=== PATIENT | male | born 1990 | race Two or more races ===

== ENCOUNTER 2016-07-18 12:54 | Emergency (ER) | payer OTHER ==
[~2016-07-18] VITALS: Ht 177.8 cm; Wt 69.9 kg
[2016-07-18 12:54] VITALS: BP 139/74
[2016-07-18 14:12] LABS: BASOPHILS # (AUTO) 0.1 /CMM (0.0-0.2); BASOPHILS % (AUTO) 0.8 % (0.0-2.0); DIFF TOTAL % 100 %; EOSINOPHILS # (AUTO) 0.1 /CMM (0.0-0.7); EOSINOPHILS % (AUTO) 1.3 % (0.0-6.0); HEMATOCRIT 40 % (39-51); HEMOGLOBIN 13.1 g/dL (13.5-17.5); LYMPHOCYTES # (AUTO) 1.2 /CMM (0.8-4.8); LYMPHOCYTES % (AUTO) 18.2 % (20.0-44.0); MEAN CORPUSCULAR HEMOGLOBIN 26 PG (26.0-33.0); MEAN CORPUSCULAR HGB CONC 33 g/dl (31.0-36.0); MEAN CORPUSCULAR VOLUME 80 fL (80-96); MONOCYTES # (AUTO) 0.5 /CMM (0.1-1.30); MONOCYTES % (AUTO) 7.2 % (2.0-12.0); NEUTROPHILS # (AUTO) 4.4 /CMM (1.8-8.9); NEUTROPHILS % (AUTO) 72.5 % (43.0-81.0); PLATELET COUNT (AUTO) 303 /CMM (150-450); RED BLOOD CELL COUNT(AUTO) 4.98 MIL/uL (4.5-6.0); WHITE BLOOD COUNT (AUTO) 6.3 K/uL (4.3-11.0)
[2016-07-18 14:21] LABS: ANION GAP 9 (5-14); CARBON DIOXIDE 32 mmol/L (21-32); CHLORIDE 103 mmol/L (98-107); CREATININE 0.8 mg/dL (0.6-1.3); GFR 118 mL/min (>60); GLUCOSE 123 mg/dL (74-106); POTASSIUM 4.2 mmol/L (3.5-5.1); SODIUM SERUM 139 mmol/L (136-145); UREA NITROGEN, BLOOD 10 mg/dL (7-18)
[2016-07-18 14:30] LABS: ALANINE AMINOTRANSFERASE 21 U/L (12-78); ALBUMIN 3.5 g/dL (3.4-5.0); ASPARTATE AMINOTRANSFERASE 18 U/L (15-37); BILIRUBIN,DIRECT 0.1 mg/dL (0.0-0.2); BILIRUBIN,TOTAL 0.4 mg/dL (0.2-1.0); INDIRECT BILIRUBIN 0.3 mg/dL (0.0-1.1); TOTAL PROTEIN, SERUM 7.3 g/dL (6.4-8.2)
[2016-07-18 14:31] LABS: ACETAMINOPHEN 0 ug/ml (10-30); SALICYLATE 0.4 mg/dL (2.8-20.0)
[2016-07-18 16:01] LABS: KETONES,URINE Negative (NEGATIVE); LEUKOCYTE ESTERASE ,URINE Negative (NEGATIVE)
[2016-07-18 16:03] LABS: ADD UA MICROSCOPIC YES
[2016-07-18 16:05] LABS: ADD URINE CULTURE NO; RBC,URINE 0-2 /HPF (0-2); WBC,URINE 0-2 /HPF (0-3)
[2016-07-18 16:46] LABS: CANNABINOID, URINE NEGATIVE (NEGATIVE); PHENCYCLIDINE SCREEN,URINE NEGATIVE (NEGATIVE)
== END 2016-07-18 17:31 ==
LOC: ER 12:56
DX: R40.1 Stupor (principal); F11.10 Opioid abuse, uncomplicated; F15.10 Other stimulant abuse, uncomplicated; G40.909 Epilepsy, unspecified, not intractable, without status epilepticus; F17.200 Nicotine dependence, unspecified, uncomplicated; B19.20 Unspecified viral hepatitis C without hepatic coma; Z02.89 Encounter for other administrative examinations
CPT/HCPCS: 36415; 70450; 80048; 80076; 80185; 80305; 81001; 85025; 93005; 99285; A4606; G0480; G0481; G0482; Z7610; 81000-TC; G6038-TC; G6039-TC; G6040-TC

== ENCOUNTER 2018-02-26 09:13 | Emergency (ER) | payer OTHER ==
[~2018-02-26] VITALS: Ht 177.8 cm; Wt 65.8 kg
[2018-02-26] MEDS ORDERED: IV NS 0.9% 1,000 ML BAG IV ONE (09:30)
[2018-02-26] MEDS ORDERED: THIAMINE HCL 100 MG TABLET PO ONE (09:30)
[2018-02-26] MEDS ORDERED: FOLIC ACID 1 MG TABLET PO ONE (09:30)
[2018-02-26] MEDS ORDERED: THIAMINE HCL 100 MG TABLET ONE (09:36)
[2018-02-26] MEDS ORDERED: FOLIC ACID 1 MG TABLET ONE (09:36)
--- NOTE | 2018-02-26 09:58 | NUR ---
PT TAKEN TO CT.
--- NOTE | 2018-02-26 10:00 | NUR ---
PT TRIED TO RUN AWAY FROM [employer] IN THE UNIT. AWARE. PT PARESH ASSISTED BACK TO BED. PT CUFFED BY [employer]. WILL MONITOR.
--- NOTE | 2018-02-26 10:30 | NUR ---
BIB [facility] 81 FROM [facility] DUE TO AN EPISODE OF SEIZURE, KNOWN HEROIN AND ALCOHOL USER, NAD NOTED, VSS, RESP EVEN AND UNLABORED, PT WAS PUT ON MONITOR, AT BS.
[2018-02-26 10:40] LABS: BASOPHILS # (AUTO) 0.1 /CMM (0.0-0.2); BASOPHILS % (AUTO) 1.6 % (0.0-2.0); EOSINOPHILS % (AUTO) 0.4 % (0.0-6.0); HEMATOCRIT 40 % (39-51); LYMPHOCYTES # (AUTO) 1.1 /CMM (0.8-4.8); LYMPHOCYTES % (AUTO) 13.3 % (20.0-44.0); MEAN CORPUSCULAR HEMOGLOBIN 25 PG (26.0-33.0); MEAN CORPUSCULAR HGB CONC 33 g/dl (31.0-36.0); MEAN CORPUSCULAR VOLUME 76 fL (80-96); MONOCYTES # (AUTO) 0.4 /CMM (0.1-1.30); MONOCYTES % (AUTO) 5.4 % (2.0-12.0); NEUTROPHILS # (AUTO) 6.5 /CMM (1.8-8.9); NEUTROPHILS % (AUTO) 79.3 % (43.0-81.0); PLATELET COUNT (AUTO) 325 /CMM (150-450); RDW COEFFICIENT OF VARIATION 13.6 (11.5-15.0); RED BLOOD CELL COUNT(AUTO) 5.22 MIL/uL (4.5-6.0); WHITE BLOOD COUNT (AUTO) 8.1 K/uL (4.3-11.0)
[2018-02-26 10:50] LABS: CALCIUM, SERUM 8.9 mg/dL (8.5-10.1); CARBON DIOXIDE 27 mmol/L (21-32); CHLORIDE 103 mmol/L (98-107); CREATININE 0.8 mg/dL (0.6-1.3); GLUCOSE 119 mg/dL (74-106); POTASSIUM 3.7 mmol/L (3.5-5.1); SODIUM SERUM 138 mmol/L (136-145); UREA NITROGEN, BLOOD 10 mg/dL (7-18)
[2018-02-26 10:52] LABS: ALCOHOL, BLOOD < 3 mg/dL (0-0)
[2018-02-26 11:04] VITALS: BP 129/75
--- NOTE | 2018-02-26 11:06 | NUR ---
Note zacarias in ED - 02/26/18 at 1106 by [facility] Patient discharged to home in stable condition. Written and verbal after care instructions given. Patient verbalizes understanding of instruction.IV removed. Catheter intact and site benign. Pressure and 4x4 applied to site. No bleeding noted.
--- NOTE | 2018-02-26 11:07 | NUR ---
PT MEDICALLY CLEARED FOR BOOKING [employer] [address]
== END 2018-02-26 11:08 ==
LOC: ER 09:16
DX: F11.10 Opioid abuse, uncomplicated (principal); Z76.5 Malingerer [conscious simulation]; F10.10 Alcohol abuse, uncomplicated; F17.200 Nicotine dependence, unspecified, uncomplicated; Z60.2 Problems related to living alone; Y90.9 Presence of alcohol in blood, level not specified; Z86.19 Personal history of other infectious and parasitic diseases; R94.02 Abnormal brain scan
CPT/HCPCS: 36415; 70450; 80048; 85025; 93005; 99285; A4606; G0480; J7030 ×2; Z7610

== ENCOUNTER 2019-07-11 12:57 | Emergency (ER) | payer SELFPAY ==
[~2019-07-11] VITALS: Ht 177.8 cm; Wt 74.8 kg
[2019-07-11] MEDS ORDERED: SULFAMETH/TRIMETH 800/160 MG 1 UDTAB TABLET PO ONE (13:30)
[2019-07-11] MEDS ORDERED: CEPHALEXIN MONOHYDRATE 500 MG CAPSULE PO ONE ×2 (13:30→13:45)
[2019-07-11 13:33] VITALS: BP 134/77
[2019-07-11] MEDS ORDERED: SULFAMETH/TRIMETH 800/160 MG 1 UDTAB TABLET ONE (13:45)
== END 2019-07-11 14:00 | disposition home or self-care (01) ==
LOC: ER 12:57
DX: L03.116 Cellulitis of left lower limb (principal); L03.115 Cellulitis of right lower limb; F19.10 Other psychoactive substance abuse, uncomplicated; R56.9 Unspecified convulsions; F10.10 Alcohol abuse, uncomplicated; F17.200 Nicotine dependence, unspecified, uncomplicated; Y90.9 Presence of alcohol in blood, level not specified; Z60.2 Problems related to living alone; Z86.19 Personal history of other infectious and parasitic diseases

== ENCOUNTER 2025-05-23 12:12 | Emergency (ER) | payer OTHER ==
[~2025-05-23] VITALS: Ht 182.9 cm; Wt 106.1 kg
[2025-05-23 12:24] VITALS: BP 132/74; TEMP 98.2
[2025-05-23] MEDS ORDERED: CEFTRIAXONE 500 MG VIAL ONE (12:38)
[2025-05-23] MEDS ORDERED: LIDOCAINE 1% INJ 50 ML MDV IJ ONE (12:38)
[2025-05-23] MEDS ORDERED: DOXYCYCLINE HYCLATE (100 MG) 100 MG TABLET ONE (12:38)
[2025-05-23] MEDS ORDERED: VALA100026 PO (12:40)
[2025-05-23] MEDS ORDERED: DOXY100C2 PO (12:40)
[2025-05-23] MEDS: CEFTRIAXONE 500 MG VIAL IM ONE (12:58)
[2025-05-23] MEDS: DOXYCYCLINE HYCLATE (100 MG) 100 MG TABLET PO ONE (12:58)
[2025-05-23 12:59] VITALS: O2SAT 99
[2025-05-25 06:07] LABS: CHLAMYDIA TRACHOMATIS NAA Negative (Negative); NEISSERIA GONORRHOEAE NAA Negative (Negative)
== END 2025-05-23 13:02 | disposition home or self-care (01) ==
LOC: ER 12:14
DX: A60.02 Herpesviral infection of other male genital organs (principal); F17.200 Nicotine dependence, unspecified, uncomplicated; Z79.624 Long term (current) use of inhibitors of nucleotide synthesis; Z86.19 Personal history of other infectious and parasitic diseases
CPT/HCPCS: 99283; 96372; 87491; 87591; J3490; J0696